=== PATIENT | male | born 2000 | race Caucasian/White ===

== ENCOUNTER 2023-07-05 09:01 | Emergency (ER) | payer OTHER ==
[~2023-07-05] VITALS: Ht 165.1 cm; Wt 59.0 kg
[2023-07-05 09:30] VITALS: BP 135/75; PULSE 72; RESP 18; TEMP 98; O2SAT 100
[2023-07-05] MEDS ORDERED: MUPI1OIN4 TP (10:21)
== END 2023-07-05 11:40 | disposition home or self-care (01) ==
LOC: ER 09:01
DX: S61.012A Laceration without foreign body of left thumb without damage to nail, initial encounter (principal); W45.8XXA Other foreign body or object entering through skin, initial encounter; Y93.89 Activity, other specified; Y92.89 Other specified places as the place of occurrence of the external cause; Y99.8 Other external cause status
CPT/HCPCS: 99283